=== PATIENT | female | born 1995 | race Caucasian/White ===

== ENCOUNTER 2020-01-06 11:05 | Outpatient (REF) | payer OTHER, SELFPAY | END 2020-01-06 11:06 | disposition home or self-care (01) | LOC: HO.LAB 11:05 | PROVIDERS: Visit Provider Internal Medicine | DX: Z20.828 Contact with and (suspected) exposure to other viral communicable diseases (principal) | CPT/HCPCS: 87635 ==

== ENCOUNTER 2021-11-13 18:57 | Emergency (ER) | payer OTHER, SELFPAY ==
--- NOTE | ~2021-11-13 | US_ITS ---
EXAMINATION: US OBSTETRICAL ULTRASOUND CLINICAL INFORMATION: pain and bleeding COMPARISON: None. LMP: 09/23/2021. Gestational age by maternal dates is 7 weeks 2 days. Estimated date of delivery by maternal dates is 06/30/2022. TECHNIQUE: Transabdominal and transvaginal pelvic ultrasound performed FINDINGS: Uterus: Normal appearing endometrial canal. Uterus measures 5.3 x 3.5 x 7.3 cm There is no gestational sac, yolk sac, or pole identified. Right ovary measures 2.2 x 2.3 x 1.5 cm. 2 cm cyst noted.. Questionable additional structure adjacent to the right adnexa which appears echogenic with some central cystic change measuring approximately 1.6 cm transverse. Left ovary 2.4 x 1.9 with a 1 cm. US/US OB <= 14 weeks fetus IMPRESSION: No evidence for intrauterine . Question additional structure adjacent to the right adnexa of uncertain significance. Correlate with clinical presentation and laboratory data. Differential diagnosis includes ectopic and early embryonic demise/missed . This critical result was discussed with Melania Gaviria at approximately 9:40 PM on 11/13/2021 and it was ascertained that the content and urgency of the report was understood at the time of direct communication.
[2021-11-13 19:04] VITALS: BP 139/90; PULSE 76; RESP 18; TEMP 36.8; O2SAT 98; BMI 28.1
[2021-11-13 19:16] LABS: MANUAL DIFF FLAG NO
[2021-11-13 19:18] LABS: Basophils Absolute Auto 0.1 X10*3/uL (0.0-0.2); Basophils Percent Auto 0.6 % (0-2); Eosinophils Absolute Auto 0.6 X10*3/uL (0.0-0.4); Eosinophils Percent Auto 3.7 % (0-4); Hematocrit 41.2 % (37.0-47.0); Hemoglobin 13.3 g/dl (12.0-16.0); Imm Gran Abs Auto 0.04 X10*3/uL (0.00-0.03); Imm Gran Pct Auto 0.3 % (0.0-0.4); Lymphocytes Absolute Auto 2.5 X10*3/uL (1.2-4.9); Mean Corpuscular HGB Conc 32.3 g/dl (31.0-35.0); Mean Corpuscular Hemoglobin 32.1 pg (27.0-33.0); Mean Corpuscular Volume 99.5 fL (80.0-98.0); Mean Platelet Volume 10.6 fL (9.4-12.3); Monocytes Percent Auto 6.4 % (2-11); Neutrophils Absolute Auto 11.3 x10*3/uL (2.0-8.3); Platelet Count 287 X10*3/uL (160-400); Red Blood Count 4.14 X10*6/uL (4.20-5.50); Red Cell Distribution Width 11.9 % (11.0-16.0); White Blood Count 15.5 X10*3/uL (4.8-10.8)
[2021-11-13 19:36] LABS: Alanine Aminotransferase 10 U/L (0-31); Albumin Level 4.2 g/dL (3.5-5.0); Alkaline Phosphatase 47 U/L (39-117); Anion Gap 14 (12-20); Aspartate Amino Transferase 13 U/L (5-31); Bilirubin Total 0.2 mg/dL (0.0-1.0); Blood Urea Nitrogen 11 mg/dL (9-16); Carbon Dioxide 22 mmol/L (22-29); Chloride 105 mmol/L (96-108); Creatinine Clr Calc Pharmacy 114.2; Estimated Glomerular Filt Rate > 60; Glucose Random 99 mg/dL (60-115); Potassium 4.4 mmol/L (3.3-5.1); Sodium 137 mmol/L (135-145); Total Protein 7.4 g/dL (6.5-8.0)
[2021-11-13 19:38] LABS: HCG Quantitative 3242 mIU/mL
--- NOTE | 2021-11-13 20:17 | ED.PREGNANCY ---
HPI - General Chief complaint: Vaginal Bleeding Stated complaint: Bleeding 7 Weeks Time Seen by Provider: 11/13/21 19:52 Source: patient Mode of arrival: ambulatory Limitations: no limitations History of Present Illness HPI Narrative: This is a 25-year-old female who is healthy who believe she is around 7 weeks who presents with right pelvic cramping and spotting since yesterday. Patient tells me her last menstrual cycle was September 23. She did have several days of spotting in October but none since. She did a [facility] call with was [facility] and has an appointment for her initial visit on December 19. She has not had an ultrasound to confirm IUP yet. She believes her due date is around June 27. This is her 1st . Yesterday the patient developed some right-sided pelvic cramping with some spotting and today she passed a small blood clot. Patient denies any fevers, chills, urinary symptoms. Related Data Allergies Allergy/AdvReac Type Severity Reaction Status Date / Time promethazine [From PHENERGAN] Allergy Intermediate I TUNR Verified 11/13/21 19:03 INTO [facility] Review of Systems Review of Systems: Yes all other systems are reviewed and are negative Constitutional: Constitutional: Reports no additional constitutional complaints, Denies body ache(s), Denies chills, Denies fever(s), Denies headache(s) and Denies weakness Eyes: Eyes: Reports no additional eye complaints and Denies change in vision ENT: Reports system reviewed and no additional complaints, except as documented, Denies dizziness, Denies headache(s), Denies nasal congestion, Denies nasal discharge and Denies neck pain Cardiovascular: Cardiovascular: Reports no additional cardiovascular complaints, Denies chest pain, Denies leg edema and Denies dyspnea Respiratory: Respiratory: Reports no additional respiratory complaints, Denies cough and Denies dyspnea Gastrointestinal: Gastrointestinal: Reports no additional gastrointestinal complaints, Denies abdominal pain, Denies diarrhea, Denies nausea and Denies vomiting Genitourinary: Genitourinary: Reports no additional female genitourinary complaints, Reports abnormal vaginal bleeding, Reports pelvic pain and Denies urinary incontinence Musculoskeletal: Musculoskeletal: Reports no additional musculoskeletal complaints, Denies back pain, Denies arthralgias, Denies joint swelling, Denies neck pain, Denies numbness and Denies tingling Integumentary/Breasts: Skin/Breast: Reports system reviewed and no additional complaints, except as docu and Denies rash Neurologic: Reports system reviewed and no additional complaints, except as documented, Denies Abnormal speech present, Denies dizziness, Denies headache(s), Denies numbness, Denies tingling and Denies weakness PMFSH Past Medical History Attestation statement: The following information was validated with the patient. Source: old records reviewed and nursing notes reviewed Social History Social History Advance Directives: No Advance Directives Information Provided: No Patient : Yes Physical Exam Vital Signs: Vital Signs: Last Vital Signs Temp 98.3 F 11/13/21 21:24 Pulse 62 11/13/21 21:24 Resp 15 11/13/21 21:24 BP 140/104 H 11/13/21 21:24 Pulse Ox 100 11/13/21 21:24 O2 Del Method 11/13/21 21:24 BMI result Body Mass Index 28.1 Const: General: cooperative, healthy appearing, comfortable and no acute distress Orientation/consciousness: patient oriented x3 Limitations: no limitations HEENT: Head: Yes normal to inspection Ears: hearing grossly normal bilaterally General nose exam: Normal external nose present Face and sinus: Yes normal facial exam Mouth: Normal oral and palatal mucosa present Throat: Yes posterior oropharynx normal Eyes: General: appearance normal, both eyes and all related structures Pupils: Equal, round and reactive pupils present Neck: Neck: Yes normal visual inspection Chest: Chest palpation & inspection: normal inspection of the chest Resp: Effort & Inspection: normal respiratory effort Auscultation: clear to auscultation bilaterally Cardio: Rate: regular rate Rhythm: regular rhythm Peripheral pulses: Peripheral pulses 2+ throughout GI: Inspection: Yes normal to inspection Palpation (GI): Soft to palpation and nontender Auscultation: normal bowel sounds : 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 Female Exam: normal external appearance Speculum Exam - Vagina: vaginal bleeding (small) Speculum Exam - Cervix: normal appearance of the cervix Bimanual exam- vagina & uterus: normal bimanual exam Bimanual Exam- Adnexa, other: normal adnexae OB/external & speculum: vaginal bleeding (small) Back/Spine/Pelvis: Thoracic/Lumbar Spine: thoracic and lumbar spine normal to inspection Skin: General skin exam: no rashes or lesions noted Neuro: General: patient oriented x3, no focal motor deficits and normal sensation to monofilament Cranial nerves: Yes Equal, round and reactive pupils present Cognition (Neuro): normal cognition Speech: No Abnormal speech present Gait exam (Neuro): Normal gait present Motor exam (neuro): 5/5 motor strength present throughout Extrem: General: Yes normal to inspection Course Course Course Narrative: 2114-ultrasound returns with patient. No intrauterine seen. Patient appears to have blood products within the uterus and a right-sided adnexal mass. Call to [facility] for STAT read. Patient HD stable. Reevaluation(s) Reevaluation #1: 2144-received call from radiologist (Gerardo Peoples). No intrauterine . There is a question of an additional structure adjacent to the right adnexa. This may be an ectopic . Call out to OB (Soraida) to discuss. Patient is hemodynamically stable. Reevaluation #2: 2199-call from Dr. Quigley. He will come in to evaluate the patient Reevaluation #3: 0-patient seen by Dr. Quigley Re. Options were discussed with the patient. Decision was made for patient to have repeat ultrasound and labs in 48 hours as well as an oracle technical architect appointment. Reviewed strict return precautions with the patient. Comfortable plan for discharge home. MDM - OB/Uterine Contractions MDM Narrative Medical decision making narrative: 25-year-old female who believes she is around 7 weeks who is who has not had an ultrasound to confirm IUP presents with right-sided pelvic pain and vaginal spotting since yesterday. Patient will need labs, UA, pelvic ultrasound, pelvic exam Consider miscarriage, threatened miscarriage, ectopic Medical Records Attestation: I reviewed the patient's medical records. Lab Data Attestation: I reviewed the patient's lab results. Result diagrams: 11/13/21 19:12 11/13/21 19:12 Labs: Lab Results 11/13/21 11/13/21 11/13/21 Range/Units 19:12 19:12 19:12 WBC 15.5 H (4.8-10.8) X10*3/uL RBC 4.14 L (4.20-5.50) X10*6/uL Hgb 13.3 (12.0-16.0) g/dl Hct 41.2 (37.0-47.0) % MCV 99.5 H (80.0-98.0) fL MCH 32.1 (27.0-33.0) pg MCHC 32.3 (31.0-35.0) g/dl RDW 11.9 (11.0-16.0) % Plt Count 287 (160-400) X10*3/uL MPV 10.6 (9.4-12.3) fL Immature Gran % (Auto) 0.3 (0.0-0.4) % Neut % (Auto) 73.0 (45-73) % Lymph % (Auto) 16.0 L (20-40) % [place] % (Auto) 6.4 (2-11) % Eos % (Auto) 3.7 (0-4) % Baso % (Auto) 0.6 (0-2) % Lymph # (Auto) 2.5 (1.2-4.9) X10*3/uL [place] # (Auto) 1.0 (0.1-1.2) X10*3/uL Eos # (Auto) 0.6 H (0.0-0.4) X10*3/uL Baso # (Auto) 0.1 (0.0-0.2) X10*3/uL Abs Immat Gran (auto) 0.04 H (0.00-0.03) X10*3/uL Absolute Neuts (auto) 11.3 H (2.0-8.3) x10*3/uL Absolute Nucleated RBC 0.000 (0.0-0.012) X10*3/uL Nucleated RBC % (auto) 0.0 (0.0-0.2) /100WBC Sodium 137 (135-145) mmol/L Potassium 4.4 (3.3-5.1) mmol/L Chloride 105 (96-108) mmol/L Carbon Dioxide 22 (22-29) mmol/L Anion Gap 14 (12-20) BUN 11 (9-16) mg/dL Creatinine 0.84 (0.5-1.4) mg/dL Estim Creat Clear Calc 114.2 Estimated GFR > 60 Random Glucose 99 (60-115) mg/dL Calcium 9.0 (8.4-10.2) mg/dL Total Bilirubin 0.2 (0.0-1.0) mg/dL AST 13 (5-31) U/L ALT 10 (0-31) U/L Alkaline Phosphatase 47 (39-117) U/L Total Protein 7.4 (6.5-8.0) g/dL Albumin 4.2 (3.5-5.0) g/dL Beta HCG, Quant 3242 mIU/mL Urine Color Urine Appearance Urine pH (5.0-9.0) Ur Specific [place] (1.005-1.025) Urine Protein (Neg-Trace) mg/dL Urine Glucose (UA) (Negative) mg/dL Urine Ketones (Negative) mg/dL Urine Blood (Negative) Urine Nitrite (Negative) Ur Leukocyte Esterase (Negative) Urine RBC (0-2) /HPF Urine WBC (0-5) /HPF Ur Squamous Epith Cells (0-2) /HPF Urine Bacteria (None Seen) Hyaline Casts (0-2) /LPF Blood Type 11/13/21 11/13/21 Range/Units 20:43 21:18 WBC (4.8-10.8) X10*3/uL RBC (4.20-5.50) X10*6/uL Hgb (12.0-16.0) g/dl Hct (37.0-47.0) % MCV (80.0-98.0) fL MCH (27.0-33.0) pg MCHC (31.0-35.0) g/dl RDW (11.0-16.0) % Plt Count (160-400) X10*3/uL MPV (9.4-12.3) fL Immature Gran % (Auto) (0.0-0.4) % Neut % (Auto) (45-73) % Lymph % (Auto) (20-40) % [place] % (Auto) (2-11) % Eos % (Auto) (0-4) % Baso % (Auto) (0-2) % Lymph # (Auto) (1.2-4.9) X10*3/uL [place] # (Auto) (0.1-1.2) X10*3/uL Eos # (Auto) (0.0-0.4) X10*3/uL Baso # (Auto) (0.0-0.2) X10*3/uL Abs Immat Gran (auto) (0.00-0.03) X10*3/uL Absolute Neuts (auto) (2.0-8.3) x10*3/uL Absolute Nucleated RBC (0.0-0.012) X10*3/uL Nucleated RBC % (auto) (0.0-0.2) /100WBC Sodium (135-145) mmol/L Potassium (3.3-5.1) mmol/L Chloride (96-108) mmol/L Carbon Dioxide (22-29) mmol/L Anion Gap (12-20) BUN (9-16) mg/dL Creatinine (0.5-1.4) mg/dL Estim Creat Clear Calc Estimated GFR Random Glucose (60-115) mg/dL Calcium (8.4-10.2) mg/dL Total Bilirubin (0.0-1.0) mg/dL AST (5-31) U/L ALT (0-31) U/L Alkaline Phosphatase (39-117) U/L Total Protein (6.5-8.0) g/dL Albumin (3.5-5.0) g/dL Beta HCG, Quant mIU/mL Urine Color Yellow Urine Appearance Clear Urine pH 7.5 (5.0-9.0) Ur Specific [place] <= 1.005 (1.005-1.025) Urine Protein Negative (Neg-Trace) mg/dL Urine Glucose (UA) Negative (Negative) mg/dL Urine Ketones Negative (Negative) mg/dL Urine Blood Moderate (2+) H (Negative) Urine Nitrite Negative (Negative) Ur Leukocyte Esterase Small (1+) H (Negative) Urine RBC 0-2 (0-2) /HPF Urine WBC 0-5 (0-5) /HPF Ur Squamous Epith Cells 0-2 (0-2) /HPF Urine Bacteria None Seen (None Seen) Hyaline Casts 0-2 (0-2) /LPF Blood Type AB Positive Imaging Data pelvic US: Attestation: I personally reviewed and interpreted this imaging study as follows: Radiologist's impression: Transabdominal and transvaginal pelvic ultrasound performed ? FINDINGS: Uterus: Normal appearing endometrial canal. Uterus measures 5.3 x 3.5 x 7.3 cm There is no gestational sac, yolk sac, or pole identified. Right ovary measures 2.2 x 2.3 x 1.5 cm. 2 cm cyst noted.. Questionable additional structure adjacent to the right adnexa which appears echogenic with some central cystic change measuring approximately 1.6 cm transverse. Left ovary 2.4 x 1.9 with a 1 cm. US/US OB <= 14 weeks fetus IMPRESSION: ? No evidence for intrauterine . ? Question additional structure adjacent to the right adnexa of uncertain significance. ? Correlate with clinical presentation and laboratory data. Differential diagnosis includes ectopic and early embryonic demise/missed . ? This critical result was discussed with Melania Gaviria at approximately 9:40 PM on 11/13/2021 and it was ascertained that the content and urgency of the report was understood at the time of direct communication. Discharge Plan Discharge Clinical Impression: Vaginal bleeding, Ectopic without intrauterine Patient Disposition: Home, Self-Care Instructions: Ectopic (DC) Additional Instructions: At this time you have met with OB Dr Quigley. The decision was made to wait and have repeat labs/US in 48 hrs as well as to be seen in the office to determine the next steps Go to the lab Saturday to have this done. Orders are in the computer. Call Dr Quigley office tomorrow morning to make sure you have an appointment. Return for increase in pain, bleeding through more then 1 pad per hour Referrals: Dao Quigley MD [Physician] - 2 days Stand Alone Forms: Work/School Release Interventions: ED Discharge Assessment Last Done: 11/13/21 23:13
[2021-11-13 21:24] VITALS: BP 140/104; PULSE 62; RESP 15; TEMP 36.8; O2SAT 100
[2021-11-13 21:27] LABS: Appearance Urine Clear; Color Urine Yellow; Glucose Urine UA Negative (Negative); Leukocyte Esterase Urine Small (1+) (Negative); Nitrite Urine Negative (Negative); PH 7.5 (5.0-9.0); Specific Gravity - Urine <= 1.005 (1.005-1.025); Urine Blood Moderate (2+) (Negative); Urine Ketones Negative (Negative); Urine Protein Negative (Neg-Trace)
--- NOTE | 2021-11-13 21:54 | P.CONOB_ITS ---
EXECUTIVE DIRECTOR CONTRACT SHOP - CN: HPI Data of Consult Consult date: 11/13/21 Primary Care Provider: Deann Kirk MD Consult Narrative Narrative: I was consulted on Juanita Maradiaga who is a 25 year old, LMP on 09/23/2021 making her by to date at 7 weeks and 2 days of gestation who presents to the emergency room complaining of pelvic cramping and spotting since yesterday, the cramping is suprapubic and right-sided, mild and intermittent in nature, no nausea and vomiting.? No care started yet, no ultrasound done yet. The following workup was done emergency room: CBC, chemistry, AST/ALT, creatinine all within normal, blood type A/B positive, hCG 3242. 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 Review of Systems ROS Unobtainable: All systems reviewed & are unremarkable except as noted in HPI and below Cardiovascular: Denies Palpatations, Loss of consciousness or Chest pain Respiratory: Denies Cough, Wheezing or Shortness of breath Musculoskeletal: Denies Low back pain Gastrointestinal: Denies Heartburn, Constipation, Diarrhea, Nausea or Vomiting Genitourinary: Denies Pain with urination, Burning with urination or Urinary frequency Neurological: Denies Migranes Psychological: Denies Depression [facility] Social History Social History Advance Directives: No Advance Directives Information Provided: No Patient : Yes Meds Allergies Allergy/AdvReac Type Severity Reaction Status Date / Time promethazine [From PHENERGAN] Allergy Intermediate I TUNR Verified 11/13/21 19:03 INTO THE [facility] EXECUTIVE DIRECTOR CONTRACT SHOP Physical Exam Vitals Vital signs: Temp Pulse Resp BP Pulse Ox O2 Del Method 98.3 F 62 15 140/104 H 100 11/13/21 21:24 11/13/21 21:24 11/13/21 21:24 11/13/21 21:24 11/13/21 21:24 11/13/21 21:24 BMI result Body Mass Index 28.1 Constitutional General Appearance: Healthy appearing, Well-nourished and Well-developed Psychiatric Mood and Affect: active and alert, normal mood and normal affect Skin Appearance: No rashes and No lesions Lungs Respiratory Effort: No intercostal retractions Auscultation: Clear to auscultation Cardiovascular Auscultation: RRR Abdomen Auscultation/Inspection/Palpation: Normal bowel sounds, Soft, Non-distended and No tenderness Female Genitalia (Pelvic) Vulva: No lesions Vagina: No erythema and Normal discharge Cervix: Grossly normal Uterus: Normal size Adnexa/Parametria: Adnexal Tenderness: None, Adnexal Mass: None, Parametrial Tenderness: None and Parametrial Mass: None EXECUTIVE DIRECTOR CONTRACT SHOP - Results Labs CBC & Chem 7: 11/13/21 19:12 11/13/21 19:12 Labs: Short CBC 11/13/21 Range/Units 19:12 WBC 15.5 H (4.8-10.8) X10*3/uL Hgb 13.3 (12.0-16.0) g/dl Hct 41.2 (37.0-47.0) % Plt Count 287 (160-400) X10*3/uL BMP 11/13/21 19:12 Sodium 137 Potassium 4.4 Chloride 105 Carbon Dioxide 22 BUN 11 Creatinine 0.84 Calcium 9.0 Liver Function 11/13/21 Range/Units 19:12 Total Bilirubin 0.2 (0.0-1.0) mg/dL AST 13 (5-31) U/L ALT 10 (0-31) U/L Alkaline Phosphatase 47 (39-117) U/L Albumin 4.2 (3.5-5.0) g/dL Urine 11/13/21 Range/Units 21:18 Urine Color Yellow Urine Appearance Clear Urine pH 7.5 (5.0-9.0) Ur Specific [place] <= 1.005 (1.005-1.025) Urine Protein Negative (Neg-Trace) mg/dL Urine Glucose (UA) Negative (Negative) mg/dL Imaging US - abdomen: Radiologist's impression: ITS Impressions Ultrasound 11/13/21 20:51 IMPRESSION: No evidence for intrauterine . Question additional structure adjacent to the right adnexa of uncertain significance. Correlate with clinical presentation and laboratory data. Differential diagnosis includes ectopic and early embryonic demise/missed . This critical result was discussed with Melania Gaviria at approximately 9:40 PM on 11/13/2021 and it was ascertained that the content and urgency of the report was understood at the time of direct communication. Assessment and Plan (1) Early stage of : Status: Acute Discussed with the patient the finding on ultrasound showing no intrauterine and a right adnexal structure of 1.6 cm , in addition to the level of HCG level which is below 3500, the level at and above which , a pelvic ultrasound is expected , in the majority of normal intrauterine gestation, to show an intrauterine gestational sac. The differential diagnosis discussed with the patient included either early ectopic versus early SAB or early normal intrauterine gestation. Options of treatment were discussed with the patient includin- Expected management for the coming 48 hours and repeat HCG with repeat pelvic Ultrasound. 2- Treat as if she has tubal with methotrexate or 3- Uterine aspiration. All the pros and cons and risks and benefits of each treatment approach were discussed with the patient. 1-The advantage of expectant management were discussed with the patient, being prevention of possible exposure to teratogenicity or risk of spontaneous in case of an early normal not diagnosed by ultrasound, the risk being delayed diagnosis and treatment of ectopic and possible rupture with all its possible consequences including intra-abdominal bleed and possible . 2- Explained to the patient that the use of curettage as a diagnostic tool is limited by the potential for disruption of a viable . In addition, discussed with the patient that the sensitivity of curettage in finding chorionic villi is only 70 percent. [place] endometrial biopsy is even less sensitive than curettage for detection of villi; sensitivities reported is between 30 and 60 percent. If curettage is performed, serum HCG levels can be followed postcurettage if histopathology does not confirm the clinical impression. When an IUP has been evacuated, hCG levels should drop by at least 15 percent the day after evacuation. There might be an advantage of performing aspiration only on patients with both an HCG concentration below the discriminatory zone and a low doubling rate, since 30 percent of these patients have a nonviable intrauterine gestation, and the remainder have an ectopic . Knowing the results of aspiration avoids unnecessary methotrexate treatment of the 30 percent of patients without ectopic . 3-Furthermore discussed with the patient the 3rd option which is treatment with methotrexate without uterine aspiration. The advantage of early treatment of presumed tubal with methotrexate was discussed with the patient, including but not limited to reducing the risk of ruptured ectopic with all its potential consequences, in addition discussed with the patient methotrexate treatment risks including but not limited to, possible exposure to methotrexate to a normal intra and and increase the risk of spontaneous and congenital anomalies. The patient decided to wait 48 hours repeat HCG and treat accordingly; The patie nt understands that delaying treatment and diagnosis of ectopic might is risk of tubal ectopic rupture and intra-abdominal bleeding with all its possible consequences, and/or might decrease the risk of successful medical treatment of ectopic with methotrexate. Instructions given to the patient to stay NPO after midnight on 11/14; explained to the patient the importance of compliance and timely HCG follow-up in 48 hours for an early and accurate diagnosis, and instructions were given to the patient to call or go to the emergency room if pain or vaginal bleeding occurs, all questions answered, the patient verbalized understanding and agreed with the plan. Follow-up in 48 hours for further management.
[2021-11-13 22:09] LABS: Bacteria Urine None Seen (None Seen); Hyaline Casts Urine 0-2 /LPF (0-2); RBC Urine 0-2 /HPF (0-2); Squamous Epithelial Cell Urine 0-2 /HPF (0-2); UACC Culture Trigger YES; WBC Urine 0-5 /HPF (0-5)
[2021-11-14 01:19] LABS: CT PCR NOT DETECTED (Not Detect.); NG PCR NOT DETECTED (Not Detect.)
[2021-11-14 11:02] LABS: BV Int Neg Control Negative (Negative); BV Int Pos Control Positive (Positive)
== END 2021-11-13 23:14 | disposition home or self-care (01) ==
PROVIDERS: Nurse Practitioner Family; Emergency Provider Emergency Medicine; PCP Internal Medicine
DX: O00.90 Unspecified ectopic pregnancy without intrauterine pregnancy (principal); Z3A.01 Less than 8 weeks gestation of pregnancy
CPT/HCPCS: 36415; 76801; 80053; 81001; 84702; 85025; 86900; 86901; 87086; 87147; 87480; 87491; 87510; 87591; 87660; 99283; 99284

== ENCOUNTER 2021-11-15 09:40 | Outpatient (REF) | payer OTHER, SELFPAY ==
--- NOTE | ~2021-11-15 | US_ITS ---
EXAMINATION: US OBSTETRICAL ULTRASOUND CLINICAL INFORMATION: Vaginal bleeding. Possible adnexal mass. Evaluate for any ectopic . LMP: 09/23/2021. COMPARISON: 11/13/2021.. TECHNIQUE: Sonographic imaging of the pelvis performed using transabdominal and transvaginal transducers. FINDINGS: The anteflexed, anteverted uterus has normal size and contour. The cervix is normal. The endometrium remains slightly heterogeneous and measures up to 1 cm AP (image 13/59). There is no gestational sac within the endometrial cavity. The color Doppler images show no evidence of hypervascularity within the endometrium. No evidence of uterine leiomyoma. The right ovary is 3.5 x 1.6 x 2.3 cm and its dominant follicle is 1.5 cm (image 29/59). The left ovary is 2.2 x 1 x 2.2 cm. Adjacent to the right ovary, again noted is a thick-walled cystic appearing structure of 1.5 cm transverse diameter (image 42/59), and this is not significant changed in size compared to recent prior from 11/13/2021. There is no pole within this structure. Again, it is uncertain whether this is a manifestation of an ectopic . No interval development of pelvic free fluid. US/US OB <= 14 weeks fetus IMPRESSION: No significant change from 11/13/2021. No evidence of an intrauterine gestation. Correlation with the trend in beta hCG levels would be helpful. If the beta-hCG levels are declining, then the patient might have had a spontaneous . However, if the levels are rising, an ectopic would remain a possibility.
[2021-11-15 11:07] LABS: HCG Quantitative 4194 mIU/mL
== END 2021-11-15 09:41 | disposition home or self-care (01) ==
LOC: HO.US 09:40
PROVIDERS: PCP Internal Medicine; Visit Provider Obstetrics & Gynecology
DX: O00.90 Unspecified ectopic pregnancy without intrauterine pregnancy (principal)
CPT/HCPCS: 36415; 76801; 84702; 99212

== ENCOUNTER 2021-11-15 12:28 | Outpatient (RCR) | payer OTHER, SELFPAY ==
[2021-11-15 12:37] VITALS: BP 134/74; PULSE 55; TEMP 36.4
--- NOTE | 2021-11-15 13:33 | MHC.HEMONC ---
pt arrived to unit accompanied with mother from Dr talamantes office for ectopic . pt aware of importance to follow up with dr talamantes after methotretrexate injection education was given by doctor and pt had no questions
== END 2021-12-04 | disposition home or self-care (01) ==
LOC: HO.ONC 12:28
PROVIDERS: PCP Internal Medicine; Visit Provider Obstetrics & Gynecology
DX: O00.90 Unspecified ectopic pregnancy without intrauterine pregnancy (principal)
CPT/HCPCS: 96402; J9250

== ENCOUNTER 2021-11-21 08:47 | Outpatient (REF) | payer OTHER, SELFPAY ==
[2021-11-21 10:05] LABS: HCG Quantitative 3869 mIU/mL
== END 2021-11-21 08:48 | disposition home or self-care (01) ==
LOC: HO.LAB 08:47
PROVIDERS: Visit Provider Obstetrics & Gynecology
DX: O00.90 Unspecified ectopic pregnancy without intrauterine pregnancy (principal)
CPT/HCPCS: 36415; 84702; 99212

== ENCOUNTER 2021-11-24 10:09 | Outpatient (REF) | payer OTHER, SELFPAY ==
[2021-11-24 11:01] LABS: HCG Quantitative 1926 mIU/mL
== END 2021-11-24 10:10 | disposition home or self-care (01) ==
LOC: HO.LAB 10:09
PROVIDERS: Visit Provider Obstetrics & Gynecology
DX: O00.90 Unspecified ectopic pregnancy without intrauterine pregnancy (principal)
CPT/HCPCS: 36415; 84702

== ENCOUNTER 2021-12-04 06:39 | Emergency (ER) | payer OTHER, SELFPAY ==
--- NOTE | 2021-12-04 07:18 | ED_ITS ---
HPI - CPR General Chief Complaint: Cardiac Arrest/CPR Stated Complaint: CARDIAC ARREST Time Seen by Provider: 12/04/21 07:17 Source: family, EMS and old records reviewed Mode of arrival: EMS Limitations: other (ongoing CPR) History of Present Illness HPI narrative: 25 yo female brought in by [place] [place] with Crow airway in place. [facility] notes that they were 2nd team on arrival and that initial BLS team told them the patient was a known heroin abuser and was last seen well at 11pm. BLS/police gave 4mg narcan and patient was defibrillated prior to their arrival. [facility] notes rhythym of PEA and Vfib the patient was defibrillated and received 5 epis. She had a crow airway in place. There was a med control call placed prior to my arrival with the ER doctor who was working and instructed the team to bring the patient in to the ED.. Family notes that the patient was being treated by OBGYN for ectopic - R adnexa received methotrexate. Quant was trending down. Patient had been complaining of calf pain and did call to get US but was told to monitor her symptoms by the clinic per mother's reports. Patient got up to use the bathroom this AM and was found collapsed on the bathroom floor at 543am. Her spouse called 911. complaint: found unresponsive Time: 05:43 Timing confirmed by: family member Place: home AED applied by bystander/payable representative: Yes Shock advised: Yes Number of shocks delivered: 1 Initial findings in the field: unresponsive, no respirations, no pulse, VTACH/VFIB and PEA ROSC in the field: No Associated injuries: Yes (bruise to L elbow and R abdomen) Associated symptoms: other (had been complaining of calf pain ) Known history of: other (ectopic ) Treatments prior to arrival: BMV, other airway device (crow airway), chest compressions, defibrillated shocks #, epinephrine mgs # (5), spinal immobilization and other (mike) Related Data Previous Rx's Medication Instructions Recorded metronidazole 0.75 % (37.5 mg/5 1 appful vaginal BEDTIME 5 days 11/18/21 gram) vaginal gel #70 grams Allergies Allergy/AdvReac Type Severity Reaction Status Date / Time promethazine [From PHENERGAN] Allergy Intermediate aggravation Verified 11/21/21 09:12 Review of Systems Review of Systems: ROS unable to be obtained due to ongoing CPR [facility] Past Medical History Attestation statement: The following information was validated with the patient. Medical History Ectopic Kidney stone Surgical History Hx of hand surgery Family History Family History Father Diabetes Mother Ovarian cancer Social History Social History Household Members Other:: fiance Housing: [facility] Alcohol intake: current Alcohol intake frequency: holidays/special occasions only e-Cigarette/Vaping Use: Currently Using Substance Use Type: Marijuana Advance Directives: No Advance Directives Information Provided: No Physical Exam Vital Signs: Vital Signs: BMI result Body Mass Index 25.0 Appearance: ongoing CPR, unresponsive Eyes: fixed dilated no reaction, no corneal reflex ENT: Pharynx normal. Crow airway in place, lips are purple Neck: normal inspection, collar in place CVS: absent heart sounds Pulses absent Respiratory: no spontaneous respirations - bilateral breath sounds heard with bagging Abdomen: soft, R mid abdomen bruise noted small localized Skin: cold purple and lividiy noted on lower thighs, fingers and toes are cold to to the touch and purple, R shoulder has IO Extremities: No lower extremity edema. Neuro: Fixed dilated pupils no response to pain, no movements Course Course Course Narrative: 714am - after ROSC, patient remained fixed and dilated, her cardiac activity was minimal pressors were to be started, she had no spontaneous respirations, her pulse could never be felt only dopplerable - her end tidal was never above 10, she lost pulses again and all cardiac activity after such a prolonged downtime with over 1+ hour of CPR with multiple shocks and rounds of epi resuscitative efforts were deemed futile and stopped. absent heart sounds, PEA on monitor with QRS complex rate 20, no respirations, fixed and dilated pupils time of 0714 Family now here and their story is much different from what EMS told us please see HPI 736am PA case # Jacob case #[id number] Mamadou Jacques MDM - Cardiac Arrest/CPR MDM Narrative Medical decision making narrative: 25 yo female brought in after BLS then ALS CPR with very convoluted story and prolonged prehospital care with ROSC briefly in our ED with bradycardia and unable to get pulses manually - she lost pulses again and CODE was called after multiple medications/defibrilations and interventions. Suspect based off history possible VTE event from what family is describing. Will consult ME. Lab Data Labs: Lab Results 12/04/21 Range/Units 06:48 POC Glucose 207 H (60-115) mg/dL Procedures Procedure Narrative Procedure Narrative: CPR - multiple defib 200J, epi multi, amio 300/amio 150, HCO3, mike in place, BS 200, levophed drip called for in case of ROSC EJ/Peripheral Line Arm L: Time Out Performed: Yes Skin Cleansed in Sterile Fashion: Yes Size (gauge): 20 IV Secured and Dressing Applied: No Patient Tolerated Procedure: other (L forearm elvis from failed 20G IV) FAST Exam FAST Exam 1: Fluid in Morison's pouch: Yes Fluid in Splenorenal Junction: No Fluid around bladder, Transverse view: No Fluid around bladder, Sagittal view: No Fluid in Pericardial Sac: No Gross Wall Motion Abnormality: Yes (no movements) Study normal for this patient: No Images saved for further review: No Intubation Time out performed: Yes sedative: none Laryngoscope: other (glidescope 4 blade) ET Tube Size: 7.5 ET Tube Uncuffed: Yes Tube Secured Depth (cm): 21 Tube Secured Location: teeth Tube Placement Confirmation: visualized tube passing through cords, equal breath sounds bilaterally, no breath sounds over epigastrium and confirmation by capnometry Patient Tolerated Procedure: well and no complications Intubation Complications: none Critical Care Time Critical Care Time Critical Care Time: Yes Total Critical Care Time: 35 Attestation: I attest to this time spent taking care of the patient Discharge Plan Discharge Clinical Impression: Cardiac arrest Patient Disposition: Interventions: Organ Donor Nursing Doc/Post Mortem care Last Done: 12/04/21 08:13 Discharge Date/Time: 12/04/21 10:06 Date/Time: 12/04/21 07:14
[2021-12-04 07:37] LABS: Glucose, Whole Blood 207 mg/dL (60-115)
[2021-12-04 08:06] VITALS: BMI 25.0
--- NOTE | 2021-12-04 08:15 | PC.NURSE ---
pt called in by EMS as heroin overdose, unconscious on EMS arrival to scene, last know well time of 2300. pt given 4mg of narcan on scene by EMS, pt shocked once prior to ALS arrival 5 rounds of epi given by ALS, shocked on transport to [facility], vfib->PEA CPR in progress for 6-10min prior to ALS arrival on scene CPR given via JAKE for additional 25 min prior to arrival at [facility]. see paper documentation for code blue at [facility] - time of 713. On hold for organ donation, call initiated at 0741, case #[id number]. Pt accepted by medical technician assistant.
== END 2021-12-04 10:06 | disposition expired ==
PROVIDERS: Emergency Provider Emergency Medicine
DX: I46.9 Cardiac arrest, cause unspecified (principal); F19.10 Other psychoactive substance abuse, uncomplicated; S50.02XA Contusion of left elbow, initial encounter; S30.1XXA Contusion of abdominal wall, initial encounter; X58.XXXA Exposure to other specified factors, initial encounter; Y93.9 Activity, unspecified; Y92.9 Unspecified place or not applicable; Y99.9 Unspecified external cause status
CPT/HCPCS: 82947; 96374; 96375; 99283; 99285; J0171; J0282